=== PATIENT | male | born 1935 | race Caucasian/White ===

== ENCOUNTER 2023-07-23 08:01 | Outpatient (CLI) | payer MEDICARE ==
[~2023-07-23] VITALS: Ht 188 cm; Wt 81.2 kg
[~2023-07-23 08:01] MED LIST: DULO-31 PO; ENAL10TA78 PO
[2023-07-23] MEDS ORDERED: aminophylline 250mg/10ml inj. IV PRN (09:15)
[2023-07-23] MEDS ORDERED: metoprolol tartrate 1mg/ml inj IV PRN (09:15)
[2023-07-23] MEDS ORDERED: normal saline 500ml IV soln 500 ML IV ONE (09:15)
[2023-07-23] MEDS ORDERED: nitroGLYCERIN 0.4mg SUBLingual tab SL PRN (09:15)
[2023-07-23 09:59] VITALS: BP 161/87; PULSE 76; RESP 28; O2SAT 100
[2023-07-23] MEDS: regadenoson 0.4mg/5ml syringe IV ONE (10:11)
[2023-07-23 10:17] VITALS: BP 162/72; PULSE 83; RESP 42; O2SAT 100
[2023-07-23 10:18] VITALS: BP 115/57; PULSE 83; RESP 42; O2SAT 100
[2023-07-23 10:19] VITALS: BP 132/66; PULSE 82; RESP 32; O2SAT 100
[2023-07-23 10:20] VITALS: BP 131/67; PULSE 75; RESP 32; O2SAT 100
[2023-07-23 10:21] VITALS: BP 127/70; PULSE 72; RESP 32; O2SAT 100
== END 2023-07-23 23:59 | disposition home or self-care (01) ==
LOC: RAD 08:01
PROVIDERS: ATTEND Internal Medicine Interventional Cardiology
DX: I48.91 Unspecified atrial fibrillation (principal); R06.02 Shortness of breath; I10 Essential (primary) hypertension
CPT/HCPCS: 78452; 93017; A9500; J2785; J7040; J0280